=== PATIENT | female | born 1960 | race Caucasian/White ===

== ENCOUNTER → 2018-12-31 | Outpatient (CLI) | payer MEDICARE ==
--- NOTE | 2018-12-31 15:37 | Diagnostic Imaging Report ---
INDICATION: Cough and congestion. TIME OF EXAM: 1:53 p.m. COMPARISON: No prior studies are available for comparison. The heart size is normal. The pulmonary vascularity is unremarkable. The lungs are clear. No infiltrate, effusion or pneumothorax is detected. IMPRESSION: No acute cardiopulmonary process is detected. Dictated by: Dictated on workstation # [id number]
== END ==
LOC: RAD FS 13:36
PROVIDERS: ATTEND Nurse Practitioner Family
DX: R05 Cough (principal); R09.89 Other specified symptoms and signs involving the circulatory and respiratory systems
CPT/HCPCS: 71046

== ENCOUNTER 2019-01-06 13:38 | Emergency (ER) | payer MEDICARE, MEDICAID ==
[~2019-01-06] VITALS: Ht 170.1 cm; Wt 96.8 kg
[2019-01-06] MEDS ORDERED: ALBU2.5V4 (14:09)
[2019-01-06] MEDS ORDERED: ESTR1TAB24 (14:09)
[2019-01-06] MEDS ORDERED: LEVO100T7 (14:09)
[2019-01-06] MEDS ORDERED: METF-397 (14:09)
[2019-01-06] MEDS ORDERED: FURO20TA4 (14:09)
[2019-01-06] MEDS ORDERED: SIMV80TA21 (14:09)
[2019-01-06] MEDS ORDERED: ALBUTEROL (14:09)
[2019-01-06] MEDS ORDERED: GABA-490 (14:09)
[2019-01-06 14:11] LABS: BASOPHILS # (AUTO) 0.1 10^3/uL (0.0-0.1); BASOPHILS % (AUTO) 0 % (0-10); EOSINOPHILS # (AUTO) 0.2 10^3/uL (0.0-0.3); EOSINOPHILS % (AUTO) 1 % (0-10); HEMATOCRIT 38 % (35-52); HEMOGLOBIN 12.9 G/DL (11.5-16.0); LYMPHOCYTES # (AUTO) 3.9 X 10^3 (1.0-4.0); LYMPHOCYTES % (AUTO) 28 % (12-44); MEAN CORPUSCULAR HEMOGLOBIN 35 PG (25-34); MEAN CORPUSCULAR HGB CONC 34 G/DL (32-36); MEAN CORPUSCULAR VOLUME 101 FL (80-99); MEAN PLATELET VOLUME 9.9 FL (7.4-10.4); MONOCYTES % (AUTO) 7 % (0-12); NEUTROPHILS % (AUTO) 64 % (42-75); PLATELET COUNT 327 10^3/uL (130-400); RED CELL DISTRIBUTION WIDTH 12.8 % (10.0-14.5); WHITE BLOOD COUNT 14.2 10^3/uL (4.3-11.0)
[2019-01-06 14:29] LABS: ALBUMIN 4.1 GM/DL (3.2-4.5); BILIRUBIN,TOTAL 0.3 MG/DL (0.1-1.0); CALCIUM 9.2 MG/DL (8.5-10.1); CREATININE SERUM 1.4 MG/DL (0.60-1.30); TOTAL PROTEIN 6.7 GM/DL (6.4-8.2)
--- NOTE | 2019-01-06 14:31 | ED Cough/URI ---
General Chief Complaint: Cough/Cold/Flu Symptoms Stated Complaint: COUGH Nursing Triage Note: AMB TO ROOM C/O COUGH AND CONGESTION SINCE SEPTEMBER. WAS SEEN AT [facility] IN [place]. ON DEC 19 GIVEN DOXY AND WAS TO GET PREDISONE BUT CAN'T AFFORD IT. WENT BACK ON SUN FELT LIKE NOTHING WAS DONE FOR HER. Sepsis Screen: No Definite Risk Source: patient Exam Limitations: no limitations History of Present Illness Date Seen by Provider: Jan 06, 2019 Time Seen by Provider: 13:57 Initial Comments 58-year-old female who presents to the emergency room with complaints of cough, congestion since mid September. She has seen her primary care provider for this twice since her cough started but she reports that she has not been able to get her prescriptions filled due to finances. She was seen last Sunday for this but was not prescribed any medications. She is alert and oriented on arrival to the emergency room in no distress. She reports history of COPD. Associated Symptoms: cough, nasal congestion Allergies and Home Medications Allergies Coded Allergies: No Known Drug Allergies (Unverified , 01/06/19) Patient Home Medication List Home Medication List Reviewed: Yes Review of Systems Review of Systems Constitutional: see HPI; No chills, No fever Respiratory: see HPI, cough All Other Systems Reviewed Negative Unless Noted: Yes Past Ouednua-Xijtnr-Oksgfx Hx Past Med/Social Hx: Reviewed Nursing Past Med/Soc Hx Patient Social History Alcohol Use: Denies Use Recreational Drug Use: Yes (POT) Smoking Status: Current Everyday Smoker Recent Foreign Travel: No Contact w/Someone Who Travel: No Recent Infectious Disease Expo: No Past Medical History Surgeries: Yes Hysterectomy Respiratory: Yes COPD Cardiac: Yes High Cholesterol Neurological: No Genitourinary: No Gastrointestinal: No Musculoskeletal: No Endocrine: Yes Diabetes, Non-Insulin dep HEENT: No Cancer: No Psychosocial: No Family Medical History Reviewed Nursing Family Hx Physical Exam Vital Signs - First Documented 01/06/19 13:41 Temp 37.7 Pulse 93 Resp 18 Pulse Ox 95 O2 Delivery Room Air Capillary Refill : Less Than 3 Seconds Height: '" Weight: lbs. oz. kg; 33.00 BMI Method: General Appearance: WD/WN, no apparent distress Respiratory: chest non-tender, lungs clear, normal breath sounds, no respiratory distress, no accessory muscle use, respiratory distress Cardiovascular: normal peripheral pulses, regular rate, rhythm, no edema, no gallop, no JVD, no murmur Extremities: normal capillary refill Neurologic/Psychiatric: alert, normal mood/affect, oriented x 3 Skin: normal color, warm/dry Progress/Results/Core Measures Suspected Sepsis Recent Fever Within 48 Hours: No Infection Criteria Present: None New/Unexplained Altered Menta: No Sepsis Screen: No Definite Risk SIRS Temperature: Pulse: 93 Respiratory Rate: 18 Laboratory Tests 01/06/19 14:05: White Blood Count 14.2H Blood Pressure / Mean: Laboratory Tests 01/06/19 14:05: Creatinine 1.40H, Platelet Count 327, Total Bilirubin 0.3 Results/Orders Lab Results Laboratory Tests Test 01/06/19 14:05 Range/Units White Blood Count 14.2 H 4.3-11.0 10^3/uL Red Blood Count 3.73 L 4.35-5.85 10^6/uL Hemoglobin 12.9 11.5-16.0 G/DL Hematocrit 38 35-52 % Mean Corpuscular Volume 101 H 80-99 FL Mean Corpuscular Hemoglobin 35 H 25-34 PG Mean Corpuscular Hemoglobin Concent 34 32-36 G/DL Red Cell Distribution Width 12.8 10.0-14.5 % Platelet Count 327 130-400 10^3/uL Mean Platelet Volume 9.9 7.4-10.4 FL Neutrophils (%) (Auto) 64 42-75 % Lymphocytes (%) (Auto) 28 12-44 % Monocytes (%) (Auto) 7 0-12 % Eosinophils (%) (Auto) 1 0-10 % Basophils (%) (Auto) 0 0-10 % Neutrophils # (Auto) 9.0 H 1.8-7.8 X 10^3 Lymphocytes # (Auto) 3.9 1.0-4.0 X 10^3 Monocytes # (Auto) 1.0 0.0-1.0 X 10^3 Eosinophils # (Auto) 0.2 0.0-0.3 10^3/uL Basophils # (Auto) 0.1 0.0-0.1 10^3/uL Neutrophils % (Manual) 55 % Lymphocytes % (Manual) 38 % Monocytes % (Manual) 5 % Eosinophils % (Manual) 1 % Basophils % (Manual) 1 % Band Neutrophils 0 % Blood Morphology Comment NORMAL Sodium Level 137 135-145 MMOL/L Potassium Level 5.0 3.6-5.0 MMOL/L Chloride Level 105 98-107 MMOL/L Carbon Dioxide Level 23 21-32 MMOL/L Anion Gap 9 5-14 MMOL/L Blood Urea Nitrogen 15 7-18 MG/DL Creatinine 1.40 H 0.60-1.30 MG/DL Estimat Glomerular Filtration Rate 39 BUN/Creatinine Ratio 11 Glucose Level 177 H 70-105 MG/DL Calcium Level 9.2 8.5-10.1 MG/DL Corrected Calcium 9.1 8.5-10.1 MG/DL Total Bilirubin 0.3 0.1-1.0 MG/DL Aspartate Amino Transf (AST/SGOT) 13 5-34 U/L Alanine Aminotransferase (ALT/SGPT) 16 0-55 U/L Alkaline Phosphatase 61 40-136 U/L Total Protein 6.7 6.4-8.2 GM/DL Albumin 4.1 3.2-4.5 GM/DL My Orders Orders - YARELY UGARTE Chest Pa/Lat (2 View) (01/06/19 13:57) Cbc With Automated Diff (01/06/19 13:57) Comprehensive Metabolic Panel (01/06/19 13:57) Manual Differential (01/06/19 14:05) Vital Signs/I&O 01/06/19 13:41 Temp 37.7 Pulse 93 Resp 18 B/P (MAP) Pulse Ox 95 O2 Delivery Room Air Capillary Refill : Less Than 3 Seconds Departure Impression Primary Impression: Bronchitis Disposition: 01 HOME, SELF-CARE Condition: Stable/Unchanged Departure-Patient Inst. Decision time for Depature: 14:51 Referrals: [facility] (PCP) Primary Care Physician CIARA KENNEDY APRN (Family) Primary Care Physician Patient Instructions: Bronchiolitis (DC) Add. Discharge Instructions: Take medication as directed. Follow-up with your primary care provider within 1 week for recheck. Return back to the emergency room for worsening symptoms or concerns as needed. All discharge instructions reviewed with patient and/or family. Voiced understanding. Scripts Prednisone (Prednisone) 20 Mg Tab 40 MG PO DAILY for 5 Days, #10 TAB 0 Refills Prov: YARELY UGARTE 01/06/19 Azithromycin (Azithromycin) 250 Mg Tablet 250 MG PO UD, #6 TAB TAKE 2 TABLETS ON DAY ONE THEN TAKE 1 TABLET DAILY FOR FOUR MORE DAYS Prov: YARELY UGARTE 01/06/19 Benzonatate (TESSALON PERLYEFRI) 100 Mg Capsule 100 MG PO Q8H for 7 Days, #21 CAP Prov: YARELY UGARTE 01/06/19 YARELY UGARTE Jan 06, 2019 14:31
[2019-01-06 14:34] LABS: BAND NEUTROPHILS 0 %; BASOPHILS % (MANUAL) 1 %; EOSINOPHILS % (MANUAL) 1 %; LYMPHOCYTES % (MANUAL) 38 %; MONOCYTES % (MANUAL) 5 %; NEUTROPHILS % (MANUAL) 55 %; RBC MORPH NORMAL
--- NOTE | 2019-01-06 14:45 | Diagnostic Imaging Report ---
INDICATION: Cough and congestion. PA and lateral views of the chest are obtained with comparison made to study of 12/31/2018. FINDINGS: Heart size and pulmonary vascularity are within normal limits, and the lungs are clear, bilaterally. IMPRESSION: Unremarkable chest. Dictated by: Dictated on workstation # [id number]
[2019-01-06] MEDS ORDERED: AZIT250T12 PO (14:54)
[2019-01-06] MEDS ORDERED: PRD20T PO (14:54)
[2019-01-06] MEDS ORDERED: BENZ100C18 PO (14:54)
[2019-01-06 15:04] VITALS: BP 116/81
== END 2019-01-06 15:03 | disposition home or self-care (01) ==
LOC: EDUNIT# 13:38 → ER 13:40
DX: J40 Bronchitis, not specified as acute or chronic (principal); E11.9 Type 2 diabetes mellitus without complications; E78.00 Pure hypercholesterolemia, unspecified; J44.9 Chronic obstructive pulmonary disease, unspecified; F17.200 Nicotine dependence, unspecified, uncomplicated; Z90.710 Acquired absence of both cervix and uterus
CPT/HCPCS: 36415; 71046; 80053; 85007; 85027